=== PATIENT | female | born 1950 | race Caucasian/White ===

== ENCOUNTER 2021-12-23 17:34 | Emergency (ER) | payer MEDICARE, BC ==
[~2021-12-23] VITALS: Ht 157.5 cm; Wt 51.3 kg
--- NOTE | 2021-12-23 17:40 | NUR ---
dr rangel at bedside for eval.
--- NOTE | 2021-12-23 17:45 | NUR ---
[id number], [id number] home c/o intermittent chest pain x last night, worst today. 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 RR is even and unlabored with no apparent distress noted. Skin is warm and non diaphoretic. Baseline EKG NSR. Placed on the monitor and hospital gown.
--- NOTE | 2021-12-23 17:50 | NUR ---
blood drawn from existing iv saline lock. sent to lab.
[2021-12-23 18:11] LABS: BASOPHILS # (AUTO) 0.1 K/uL (0.0-0.2); BASOPHILS % (AUTO) 0.8 % (0.0-2.0); EOSINOPHILS % (AUTO) 0.9 % (0.0-6.0); HEMATOCRIT 31 % (33-45); HEMOGLOBIN 9.9 g/dL (11.5-14.8); LYMPHOCYTES # (AUTO) 3.7 K/uL (0.8-4.8); LYMPHOCYTES % (AUTO) 50.8 % (20.0-44.0); MEAN CORPUSCULAR HGB CONC 32 g/dl (31.0-36.0); MEAN CORPUSCULAR VOLUME 82 fL (82-100); MONOCYTES # (AUTO) 0.5 K/uL (0.1-1.30); MONOCYTES % (AUTO) 6.8 % (2.0-12.0); NEUTROPHILS % (AUTO) 40.7 % (43.0-81.0); PLATELET COUNT (AUTO) 253 K/uL (150-450); RED BLOOD CELL COUNT(AUTO) 3.74 MIL/uL (4.0-5.2); WHITE BLOOD COUNT (AUTO) 7.4 K/uL (4.3-11.0)
[2021-12-23 18:27] LABS: CALCIUM, SERUM 8.3 mg/dL (8.5-10.1); CARBON DIOXIDE 27 mmol/L (21-32); CHLORIDE 103 mmol/L (98-107); CREATININE 0.8 mg/dL (0.6-1.3); GLUCOSE 119 mg/dL (74-106); POTASSIUM 3.5 mmol/L (3.5-5.1); SODIUM SERUM 135 mmol/L (136-145); UREA NITROGEN, BLOOD 16 mg/dL (7-18)
[2021-12-23 18:43] LABS: ALANINE AMINOTRANSFERASE 19 U/L (12-78); ALBUMIN 2.9 g/dL (3.4-5.0); ALKALINE PHOSPHATASE 55 U/L (46-116); ASPARTATE AMINOTRANSFERASE 18 U/L (15-37); BILIRUBIN,DIRECT 0.1 mg/dL (0.0-0.2); BILIRUBIN,TOTAL 0.2 mg/dL (0.2-1.0); TOTAL PROTEIN, SERUM 8.2 g/dL (6.4-8.2)
[2021-12-23] MEDS ORDERED: IOHEXOL-350 100 ML VIAL IV ONE (19:11)
--- NOTE | 2021-12-23 19:20 | NUR ---
pt to radiology for ct pulmonary angio via [facility].
--- NOTE | 2021-12-23 19:45 | NUR ---
COVID SWAB COLLECTED AND SENT TO LAB
--- NOTE | 2021-12-23 21:49 | NUR ---
Patient discharged to home in stable condition. Written and verbal after care instructions given. Patient verbalizes understanding of instruction.
--- NOTE | 2021-12-23 21:49 | NUR ---
IV removed. Catheter intact and site benign. Pressure and 4x4 applied to site. No bleeding noted.
[2021-12-23 21:51] VITALS: BP 116/66
== END 2021-12-23 21:52 | disposition home or self-care (01) ==
LOC: ER 17:39
DX: R07.9 Chest pain, unspecified (principal); J98.11 Atelectasis; E03.9 Hypothyroidism, unspecified; Z20.822 Contact with and (suspected) exposure to COVID-19; I70.0 Atherosclerosis of aorta
CPT/HCPCS: 99285; 71275; 71045; 87426; 93005; 73030; 85025; 80048; 80076; 85378; 36415; 84484 ×2; 83880; Q9967; C9803